=== PATIENT | male | born 1975 | race Caucasian/White ===

== ENCOUNTER 2021-03-05 17:21 | Emergency (ER) | payer OTHER ==
[~2021-03-05] VITALS: Ht 185.4 cm; Wt 97.5 kg
== END 2021-03-05 18:28 | disposition home or self-care (01) ==
LOC: ED 17:21
DX: S61.011A Laceration without foreign body of right thumb without damage to nail, initial encounter (principal); Z23 Encounter for immunization; W45.8XXA Other foreign body or object entering through skin, initial encounter
CPT/HCPCS: 12001; 90471; 90715; 99282-25